=== PATIENT | male | born 1985 | race Caucasian/White ===

== ENCOUNTER 2017-09-16 03:36 | Emergency (ER) | payer SELFPAY ==
[~2017-09-16] VITALS: Ht 188 cm; Wt 105.0 kg
[~2017-09-16 03:36] MED LIST: ALBU1.25 NEB; ALBU8I INH; FLUT1SPR9 EACH NARE; PRED10PA PO; ZITH250T PO
[2017-09-16 03:48] VITALS: BP 142/75; PULSE 104; RESP 20; TEMP 98; O2SAT 96
[2017-09-16] MEDS ORDERED: ALBUAER3 INH ×2 (04:03→05:02)
[2017-09-16] MEDS ORDERED: ADDE20 PO (04:03)
[2017-09-16] MEDS ORDERED: RESP: ALBUTEROL 2.5 MG/3 ML NEB (SCH) INH ONE (04:15)
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
[2017-09-16] MEDS ORDERED: IBUPROFEN 600 MG TAB PO ONE (04:45)
[2017-09-16] MEDS ORDERED: IBUP-232 PO (05:02)
== END 2017-09-16 05:49 | disposition home or self-care (01) ==
LOC: NEPC 03:36
DX: J45.901 Unspecified asthma with (acute) exacerbation (principal); S40.012A Contusion of left shoulder, initial encounter; Y04.2XXA Assault by strike against or bumped into by another person, initial encounter; Z72.0 Tobacco use; Z79.899 Other long term (current) drug therapy
CPT/HCPCS: 73030; 94664; 99283; J7613